=== PATIENT | female | born 2000 | race Caucasian/White ===

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

== ENCOUNTER 2018-07-29 23:58 | Emergency (ER) | payer OTHER ==
[~2018-07-29] VITALS: Ht 154.9 cm; Wt 78.0 kg
[2018-07-30 00:06] VITALS: BP 128/91; Ht 154.9 cm; Wt 78.0 kg
== END 2018-07-30 01:37 | disposition home or self-care (01) ==
LOC: ED 23:58
DX: S90.811A Abrasion, right foot, initial encounter (principal); S80.211A Abrasion, right knee, initial encounter; J45.909 Unspecified asthma, uncomplicated; Z90.89 Acquired absence of other organs; V09.9XXA Pedestrian injured in unspecified transport accident, initial encounter; Y93.89 Activity, other specified; Y92.89 Other specified places as the place of occurrence of the external cause; Y99.8 Other external cause status
CPT/HCPCS: 90715

== ENCOUNTER 2018-08-03 19:28 | Emergency (ER) | payer OTHER ==
[~2018-08-03] VITALS: Ht 154.9 cm; Wt 78.0 kg
[2018-08-03 19:32] VITALS: Ht 154.9 cm; Wt 78.0 kg
[2018-08-03 22:14] VITALS: BP 101/78
== END 2018-08-03 22:14 | disposition home or self-care (01) ==
LOC: ED 19:28
DX: S90.811D Abrasion, right foot, subsequent encounter (principal); X58.XXXD Exposure to other specified factors, subsequent encounter

== ENCOUNTER 2018-11-15 19:45 | Emergency (ER) | payer OTHER ==
[~2018-11-15] VITALS: Ht 157.5 cm; Wt 81.2 kg
[2018-11-15 20:07] VITALS: Ht 157.5 cm; Wt 81.2 kg
[2018-11-15 22:41] VITALS: BP 131/87
== END 2018-11-15 22:41 | disposition home or self-care (01) ==
LOC: ED 19:45
DX: R07.89 Other chest pain (principal); E03.9 Hypothyroidism, unspecified; J45.909 Unspecified asthma, uncomplicated; Z90.89 Acquired absence of other organs

== ENCOUNTER 2018-12-12 16:56 | Emergency (ER) | payer OTHER ==
[~2018-12-12] VITALS: Ht 154.9 cm; Wt 81.2 kg
[2018-12-12 17:05] VITALS: Ht 154.9 cm; Wt 81.2 kg
[2018-12-12 19:03] VITALS: BP 118/64
== END 2018-12-12 19:03 | disposition home or self-care (01) ==
LOC: ED 16:56
DX: S62.602A Fracture of unspecified phalanx of right middle finger, initial encounter for closed fracture (principal); J45.909 Unspecified asthma, uncomplicated; E89.0 Postprocedural hypothyroidism; W22.8XXA Striking against or struck by other objects, initial encounter; Y93.89 Activity, other specified; Y92.89 Other specified places as the place of occurrence of the external cause; Y99.8 Other external cause status
CPT/HCPCS: A4570